=== PATIENT | male | born 1960 | race Hispanic/Latino ===

== ENCOUNTER 2018-05-07 03:57 | Emergency (ER) | payer OTHER ==
[~2018-05-07] VITALS: Ht 182.9 cm; Wt 91.6 kg
[~2018-05-07 03:57] MED LIST: ASPIRIN EC81 M1 PO; DILAUDID2 M1 PO; FLEXERIL10 MG PO; GLUCOPHAGE500 MG PO; HYDROCODON-ACET15 ML PO; HYDROCODONE/ACE1 TA1 PO; LANTUS100 UNIT/1 SC; LIPITOR10 M1 PO; LISINOPRIL10 M1 PO; LISINOPRIL10 MG PO; LOVENOX40 MG/0.1 SC; METFORMIN HCL500 M3 PO; NEURONTIN300 M1 PO; NOVOLOG100 UNIT/2 SC; OMEPRAZOLE40 M1 PO; OMEPRAZOLE40 MG PO; ONGLYZA5 MG PO; PERCOCET 325 MG1 TA2 PO; TANZEUM30 MG/0.5 SC; VITAMIN C500 M6 PO
[2018-05-07 04:07] VITALS: BP 151/75
--- NOTE | 2018-05-07 04:22 | ED NOSE COMPLAINT ---
History of Present Illness General Chief Complaint: Epistaxis/Nasal Foreign Body Stated Complaint: PT C/O EPISTAXIS SINCE YESTERDAY DENIES THINNERS Source: patient, old records Exam Limitations: no limitations Vital Signs & Intake/Output Vital Signs & Intake/Output Vital Signs Date Time Temp Pulse Resp B/P B/P Pulse O2 O2 Flow FiO2 Mean Ox Delivery Rate 05/07 0407 97.2 88 20 151/75 95 Room Air Room Air Allergies Coded Allergies: hydroxychloroquine (From PLAQUENIL) (Intermediate, rash, 05/02/16) morphine (Intermediate, headache 05/02/16) acetaminophen (From VICODIN) (Mild, "DOESN'T WORK" 05/02/16) hydrocodone (From VICODIN) (Mild, "DOESN'T WORK" 05/02/16) Reconcile Medications Enoxaparin Sodium (Lovenox) 40 MG/0.4 ML SYRINGE 1 SYR SC DAILY BLOOD THINNER PATIENT HAS PERSCRIPTION AT HOME Gabapentin (Neurontin) 300 MG CAPSULE 1 CAP PO TID RESTLESS LEGS (Reported) Hydrocodone/Acetaminophen (Hydrocodon-Acetamin 7.5-325/15) 15 ML SOLUTION 15 ML PO Q6P PRN PAIN SCALE 1-6 Hydromorphone HCl (Dilaudid) 2 MG TABLET 1-2 TAB PO Q4-6P PRN PAIN Omeprazole 40 MG CAPSULE. 1 CAP PO DAILY GI (Reported) Triage Note: 57YO MALE TO TRIAGE W/CO L NOSEBLEED INTERMITTENT SINCE SATURDAY. STATES HE SAW PMD YESTERDAY. STATES BLEEDING RETURNED 0100THIS AM AND SEVERAL CLOTS PRESENT Triage Nurses Notes Reviewed? yes HPI: Patient presents after having an intermittent nosebleed for the past 2 days. Patient states the bleeding started again tonight. Positive clots as well as blood coming out of his mouth. Patient denies any headache or lightheadedness. There is no nausea or vomiting. Past History Travel History Traveled to [place] past 21 day No Medical History Any Pertinent Medical History? 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 No Review of Systems Review of Systems Constitutional: Reports: no symptoms. EENTM: Reports: see HPI, epistaxis. Respiratory: Reports: no symptoms. Cardiovascular: Reports: no symptoms. Neurological/Psychological: Reports: no symptoms. Immunologic/Allergic: Reports: no symptoms. Physical Exam Physical Exam General Appearance: well developed/nourished, alert, awake Head: atraumatic Nose: dried blood Mouth/Throat: normal mouth inspection, pharynx normal Cardiovascular/Respiratory: normal breath sounds, normal peripheral pulses, regular rate/rhythm, no respiratory distress Neurologic/Psych: no motor/sensory deficits, awake, alert, oriented x 3, normal gait, normal mood/affect Skin: intact, normal color, warm/dry Progress Differential Diagnoses I considered the following diagnoses in my evaluation of the patient: [EPISTAXIS ] Plan of Care: PACK Initial ED EKG: none Departure Departure Disposition: HOME OR SELF CARE Condition: Stable Clinical Impression Primary Impression: Epistaxis Referrals: eZ OBRINE,Hilaria Caballero MD,Ced Estrada (PCP/Family) Additional Instructions: KEEP PACKING IN FOLLOW UP WITH DR. MACK RETURN IF SYMOPTOMS WORSEN OR FOR ANY CONCERNS Departure Forms: Customer Survey General Discharge Information Procedures Epistaxis/Nasal Foreign Body Status: no bleeding Clots Cleared Nasal Passage: by patient blowing Inspected With: otoscope Bleeding Site: ANTERIOR SPETUM Nasal Rocket: Left: Inserted Anterior.
[2018-05-07] MEDS ORDERED: ZITHROMAX250 M2 PO (13:10)
[2018-05-08] MEDS ORDERED: LISINOPRIL5 M1 PO (03:41)
[2018-05-08] MEDS ORDERED: METFORMIN HCL500 M4 PO (03:41)
[2018-05-08] MEDS ORDERED: GABAPENTIN300 M2 PO (03:41)
== END 2018-05-07 04:41 ==
LOC: ERH 03:57
DX: R04.0 Epistaxis (principal)
CPT/HCPCS: 99282

== ENCOUNTER 2018-05-07 11:05 | Emergency (ER) | payer OTHER ==
[~2018-05-07] VITALS: Ht 182.9 cm; Wt 91.6 kg
[2018-05-07 12:02] LABS: ABSOLUTE BASOPHIL COUNT 0 /CUMM (0.0-0.2); ABSOLUTE EOSINOPHIL COUNT 0.2 /CUMM (0.0-0.7); ABSOLUTE MONOCYTE COUNT 0.6 /CUMM (0.10-0.60); BASOPHIL % 0.4 % (0.0-2.0); HEMATOCRIT 46.8 % (42-52); MEAN CORPUSCULAR HGB 31.2 PG (27.0-31.0); MEAN CORPUSCULAR HGB CONC 34.5 G/DL (33.0-37.0); MEAN CORPUSCULAR VOLUME 90.6 FL (80.0-94.0); MEAN PLATELET VOLUME 7.9 FL (7.4-10.4); PLATELET COUNT 235 /CUMM (130-400); RBC DISTRIBUTION WIDTH 13.4 % (11.5-14.5); RED BLOOD CELL CT 5.17 /CUMM (4.70-6.10); WHITE BLOOD CELL COUNT 8.8 /CUMM (4.8-10.8)
[2018-05-07 12:13] LABS: PT 10.9 SEC (9.4-12.5); PTT 31 SEC (25-37)
--- NOTE | 2018-05-07 12:34 | ED NOSE COMPLAINT ---
History of Present Illness General Chief Complaint: Epistaxis/Nasal Foreign Body Stated Complaint: NOSE BLEEDING THROUGH PACKING,PLACED THIS AM Source: patient Exam Limitations: no limitations Vital Signs & Intake/Output Vital Signs & Intake/Output Vital Signs Date Time Temp Pulse Resp B/P B/P Pulse O2 O2 Flow FiO2 Mean Ox Delivery Rate 05/07 1305 98.2 69 18 143/72 96 05/07 1108 97.8 82 18 156/76 98 Room Air Allergies Coded Allergies: hydroxychloroquine (From PLAQUENIL) (Intermediate, rash, 05/02/16) morphine (Intermediate, headache 05/02/16) acetaminophen (From VICODIN) (Mild, "DOESN'T WORK" 05/02/16) hydrocodone (From VICODIN) (Mild, "DOESN'T WORK" 05/02/16) Reconcile Medications Azithromycin (Zithromax) 250 MG TABLET 1 DP PO AD NASAL PACKING PPX 2 the first day followed by 1 for days 2-5 Gabapentin (Neurontin) 300 MG CAPSULE 1 CAP PO TID RESTLESS LEGS (Reported) Hydrocodone/Acetaminophen (Hydrocodon-Acetamin 7.5-325/15) 15 ML SOLUTION 15 ML PO Q6P PRN PAIN SCALE 1-6 Omeprazole 40 MG CAPSULE. 1 CAP PO DAILY GI (Reported) Triage Note: PT STATES THAT HE WAS HERE AT 0300 DUE TO SUDDEN ONSET OF BLOODY NOSE, PACKING WAS PLACED, STATES THAT HE IS BLEEDING AROUND THE PACKING AT THIS TIME. BP 156/76 Triage Nurses Notes Reviewed? yes Onset: Abrupt Duration: day(s): (2), constant, continues in ED, getting worse Timing: single episode today Injury Environment: home Severity: mild, moderate Severity Numbers: 6 No Modifying Factors: none HPI: 57-year-old male history of hypertension presents for evaluation of nosebleed. Patient was seen early this morning for nosebleed had a Rhino Rocket placed. He states that his bleeding is now moving through the Rhino Rocket. He also has in the back of his throat. He denies any dizziness or lightheadedness there is no trauma. He is not on anticoagulation. No history of nosebleeds. Past History Travel History Traveled to [place] past 21 day No Medical History Any Pertinent Medical History? 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 No Review of Systems Review of Systems Constitutional: Reports: no symptoms. EENTM: Reports: epistaxis. Respiratory: Reports: no symptoms. Cardiovascular: Reports: no symptoms. GI: Reports: no symptoms. Genitourinary: Reports: no symptoms. Musculoskeletal: Reports: no symptoms. Skin: Reports: no symptoms. Neurological/Psychological: Reports: no symptoms. Hematologic/Endocrine: Reports: no symptoms. Immunologic/Allergic: Reports: no symptoms. All Other Systems: Reviewed and Negative Physical Exam Physical Exam General Appearance: well developed/nourished, no apparent distress, alert, awake Head: atraumatic, normal appearance Eyes: Bilateral: normal appearance, PERRL, EOMI. Nose: active bleeding, dried blood, A ANTERIOR rHINO rOCKET IS PRESENT IN THE LEFT NARIS. aCTIVE BLEEDING IS PRESENT THROUGH THE rHINO rOCKET. tHERE IS ALSO BLOOD IN THE POSTERIOR OROPHARYNX, NO BLEEDING VESSEL VISUALIZED Mouth/Throat: normal mouth inspection, BLOOD IN POSTERIOR PHARYNX Neck: normal inspection, supple, full range of motion Cardiovascular/Respiratory: normal breath sounds, normal peripheral pulses, regular rate/rhythm, no respiratory distress Back: normal inspection, normal range of motion Neurologic/Psych: no motor/sensory deficits, awake, alert, oriented x 3, normal gait, normal mood/affect Skin: intact, normal color, warm/dry Progress Differential Diagnoses I considered the following diagnoses in my evaluation of the patient: [Anterior nosebleed, posterior nosebleed] Plan of Care: Orders Procedure Date/time Status TROPONIN LEVEL 05/07 1140 Complete PARTIAL THROMBOPLASTIN TIME 05/07 1140 Complete PROTHROMBIN TIME 05/07 1140 Complete COMPREHENSIVE METABOLIC PANEL 05/07 1140 Complete CBC WITHOUT DIFFERENTIAL 05/07 1140 Complete Laboratory Tests 05/07/18 1154: Anion Gap 12, Estimated GFR > 60, BUN/Creatinine Ratio 28.3 H, Glucose 349 H, Calcium 9.3, Total Bilirubin 0.4, AST 13 L, ALT 25, Alkaline Phosphatase 83, Troponin I < 0.01, Total Protein 6.7, Albumin 3.9, Globulin 2.8, Albumin/ Globulin Ratio 1.4, PT 10.9, INR 1.00, APTT 31, CBC w Diff NO MAN DIFF REQ, RBC 5.17, MCV 90.6, MCH 31.2 H, MCHC 34.5, RDW 13.4, MPV 7.9, Gran % 68.0, Lymphocytes % 22.4, Monocytes % 7.2, Eosinophils % 2.0, Basophils % 0.4, Absolute Granulocytes 6.0, Absolute Lymphocytes 2.0, Absolute Monocytes 0.6, Absolute Eosinophils 0.2, Absolute Basophils 0 Patient is here with epistaxis. He had an anterior Rhino Rocket placed and is bleeding around it. Is also bleeding in his posterior oropharynx suspect this may be a posterior bleed. The anterior Rhino Rocket was removed. Patient was able to blow out a large amount of clot that was behind it. Afrin was administered. A thrombin coated Rhino Rocket anterior posterior was placed in the left naris. Basic labs were obtained patient was monitored for 90 minutes. Work is unremarkable. There's been no rebleeding. Patient was ambulated in the emergency department he has a steady gait no rebleeding good hemostasis. Patient has an appointment on Saturday with ENT. He'll be given a prescription for Zithromax and instructions to keep the Rhino Rocket in place until he sees ENT discussed return precautions patient agrees the plan Initial ED EKG: none Departure Departure Disposition: HOME OR SELF CARE Condition: Stable Clinical Impression Primary Impression: Epistaxis, recurrent Referrals: Ze OBRIEN,Hilaria Caballero MD,Ced Estrada (PCP/Family) Additional Instructions: Keep nasal packing in place. Take antibiotics as directed for the full course. Follow-up on Saturday as scheduled with ENT. Return sooner with pain or rebleeding. Departure Forms: Customer Survey General Discharge Information Prescriptions: Current Visit Scripts Azithromycin (Zithromax) 1 DP PO AD #6 TAB 2 the first day followed by 1 for days 2-5 Procedures Epistaxis/Nasal Foreign Body Status: bleeding Clots Cleared Nasal Passage: by patient blowing Nasal Drops Instilled: Left: Afphrin. Ext Pressure/Nose Pinch (min): 15 Inspected With: otoscope, nasal speculum Bleeding Site: RT NARES POSTERIOR Observe for Bleedin MIN Nasal Rocket: Left: Inserted Anterior, Inserted Posterior. Applied: Left: Other Anterior (THROMBIN), Other Posterior (THROMBIN).
[2018-05-07 13:05] VITALS: BP 143/72
[2018-05-07] MEDS ORDERED: ZITHROMAX250 M2 PO (13:10)
[2018-05-08] MEDS ORDERED: METFORMIN HCL500 M4 PO (03:41)
[2018-05-08] MEDS ORDERED: GABAPENTIN300 M2 PO (03:41)
[2018-05-08] MEDS ORDERED: LISINOPRIL5 M1 PO (03:41)
== END 2018-05-07 13:17 ==
LOC: ERH 11:05
PROVIDERS: Physician Assistant Medical
DX: R04.0 Epistaxis (principal); I10 Essential (primary) hypertension; E11.9 Type 2 diabetes mellitus without complications